=== PATIENT | female | born 1930 | race Two or more races ===

== ENCOUNTER 2018-08-19 16:39 | Emergency (ER) | payer MEDICARE, MEDICAID ==
[2018-08-19 16:43] VITALS: BP 164/83; PULSE 70; RESP 16; TEMP 99.7; O2SAT 100
--- NOTE | 2018-08-19 17:11 | ED PDOC ---
HPI: Altered Mental Status Time Seen by Provider: 08/19/18 17:00 Chief Complaint (Nursing): Altered Mental Status Chief Complaint (Provider): Altered Mental Status History Per: Patient, EMS History/Exam Limitations: Other (altered mental status) Onset Of Symptoms: Cannot Confirm Onset Current Symptoms Are (Timing): Still Present Usual Baseline: Unknown Use Of Anticoag/Antiplatlets: Unknown Severity: Moderate Additional Complaint(s): 88 year old female is brought into the ED by EMS after police found her wandering on the street, looking confused near her house. Patient was recognized by her neighbor. Patient offers no complaints at this time. Patient does not know why she is here. Patient denies having any medical history. PMD: None provided Past Medical History Reviewed: Historical Data, Nursing Documentation, Vital Signs Vital Signs: Last Vital Signs Temp 99.7 F H 08/19/18 16:42 Pulse 70 08/19/18 16:42 Resp 16 08/19/18 16:42 BP 164/83 H 08/19/18 16:42 Pulse Ox 100 08/19/18 16:42 CORY Report Viewed: Yes Primary Care Provider: FAMILY PROVIDER,NO - Medical History PMH: No Chronic Diseases - Family History Family History: States: Unknown Family Hx - Allergies Allergies/Adverse Reactions: Allergies Allergy/AdvReac Type Severity Reaction Status Date / Time No Known Allergies Allergy Verified 08/19/18 16:46 Review of Systems ROS Statement: Except As Marked, All Systems Reviewed And Found Negative Physical Exam - Reviewed Nursing Documentation Reviewed: Yes Vital Signs Reviewed: Yes - Physical Exam Appears: Positive for: Well, Non-toxic, No Acute Distress Head Exam: Positive for: ATRAUMATIC, NORMOCEPHALIC Skin: Positive for: Normal Color, Warm, Dry Eye Exam: Positive for: Normal appearance Cardiovascular/Chest: Positive for: Regular Rate, Rhythm Respiratory: Positive for: Normal Breath Sounds Neurological/Psych: Positive for: Awake, Alert, Oriented (x1 to person) - Laboratory Results Result Diagrams: 08/19/18 17:15 08/19/18 17:15 - ECG O2 Sat by Pulse Oximetry: 100 (RA) Pulse Ox Interpretation: Normal Medical Decision Making Medical Decision Makin:00 Initial impression: 88 year old female with an altered mental status Initial plan: Attempt to contact patient's family. Determine is patient is at baseline. * EKG * CMP * udip * CBC with differential * reevaluation ScribeAttestation: Documented byAngela Gomez, acting as a scribe for Lauro Traore MD. Provider ScribeAttestation: All medical record entries made by the Scribe were at my direction and personally dictated by me. I have reviewed the chart and agree that the record accurately reflects my personal performance of the history, physical exam, medical decision making, and the department course for this patient. I have also personally directed, reviewed, and agree with the discharge instructions and disposition. Disposition - Clinical Impression Clinical Impression: Altered mental status - Patient ED Disposition Is Patient to be Admitted: Transfer of Care - Disposition Disposition: Transfer of Care Disposition Time: 19:06 Condition: FAIR Forms: [employer] (Algerian) Patient Signed Over To: Vin Khan (Pending reeval)
[2018-08-19 17:20] LABS: BASO # 0.1 K/uL (0.0-0.2); BASO % 0.9 % (0.0-2.0); EOS # 0.1 K/uL (0.0-0.7); EOS % 1.6 % (0.0-4.0); HEMOGLOBIN 12.7 g/dL (12.0-16.0); LYMPH # 2.4 K/uL (1.0-4.3); LYMPH % 27.8 % (20.0-40.0); MEAN CELL VOLUME 93.3 fl (81.0-99.0); MEAN CORPUSCULAR HEMOGLOBIN 30.7 pg (27.0-31.0); MEAN CORPUSCULAR HGB CONC 32.9 g/dL (33.0-37.0); MONO # 0.6 K/uL (0.0-0.8); MONO % 7.2 % (0.0-10.0); NEUT # 5.3 K/uL (1.8-7.0); NEUT % 62.5 % (50.0-75.0); NRBC % 0.2 % (0.0-0.0); RBC 4.13 Mil/uL (3.80-5.20); RED CELL DISTRIBUTION WIDTH 13.2 % (11.5-14.5); WHITE BLOOD COUNT 8.5 K/uL (4.8-10.8)
[2018-08-19 17:45] LABS: ALB/GLOB RATIO 1.5 (1.0-2.1); ALBUMIN 4.1 g/dL (3.5-5.0); ALT/SGPT 19 U/L (9-52); AST/SGOT 34 U/L (14-36); BLOOD UREA NITROGEN 26 mg/dl (7-17); GFR NON-AFRICAN AMERICAN 59
--- NOTE | 2018-08-19 19:17 | ED PDOC ---
- Laboratory Results Result Diagrams: 08/19/18 17:15 08/19/18 17:15 Lab Results: Total Bilirubin 0.4 mg/dl (0.2-1.3) 08/19/18 17:15 AST 34 U/L (14-36) 08/19/18 17:15 ALT 19 U/L (9-52) 08/19/18 17:15 Alkaline Phosphatase 60 U/L (38-126) 08/19/18 17:15 Total Protein 6.9 G/DL (6.3-8.2) 08/19/18 17:15 Albumin 4.1 g/dL (3.5-5.0) 08/19/18 17:15 Globulin 2.8 gm/dL (2.2-3.9) 08/19/18 17:15 Albumin/Globulin Ratio 1.5 (1.0-2.1) 08/19/18 17:15 - ECG O2 Sat by Pulse Oximetry: 100 (RA) Medical Decision Making Medical Decision Makin:00 Patient signed out to me by Lauro Traore MD pending contact with family and reevaluation. 20:00 Patient's grandson at bedside to escort her home and will stay with patient in absence of normal life insurance salesperson. He finds his grandmother to be at baseline mentation. Dx Dementia ScribeAttestation: Documented byAngela Gomez, acting as a scribe for Vin Khan MD. Provider ScribeAttestation: All medical record entries made by the Scribe were at my direction and personally dictated by me. I have reviewed the chart and agree that the record accurately reflects my personal performance of the history, physical exam, medical decision making, and the department course for this patient. I have also personally directed, reviewed, and agree with the discharge instructions and disposition. Disposition - Clinical Impression Clinical Impression: Dementia - POA Present On Arrival: None - Disposition Disposition: Routine/Home Disposition Time: 20:00 Condition: STABLE Instructions: Dementia (DC) Forms: [facility] (Polish) Print Language: ROMANIAN
--- NOTE | 2018-08-20 09:14 | CARD ---
APPROVED REPORT Date of service: 08/19/2018 EKG Measurement Heart [id number] <Conclusion> Sinus rhythm with occasional premature ventricular complexes Otherwise normal ECG
== END 2018-08-19 20:31 | disposition home or self-care (01) ==
LOC: H.ER 16:39
DX: F03.90 Unspecified dementia, unspecified severity, without behavioral disturbance, psychotic disturbance, mood disturbance, and anxiety (principal)